=== PATIENT | female | born 1990 | race Two or more races ===

== ENCOUNTER 2019-02-24 12:39 | Emergency (ER) | payer MEDICAID ==
[~2019-02-24] VITALS: Ht 157.5 cm; Wt 81.6 kg
[2019-02-24 12:48] VITALS: BP 125/86
[2019-02-24 13:13] LABS: Basophils # (auto) 0 uL; Basophils % (auto) 0.3 % (0.0-2.0); Eosinophils # (auto) 0 uL; Eosinophils % (auto) 0.3 % (0.0-7.0); Hematocrit 38.3 % (36.0-46.0); Hemoglobin 12.8 g/dL (12.2-16.2); Lymphocytes # (auto) 2.1 uL; Lymphocytes % (auto) 18.9 % (10.0-50.0); Mean Corpuscular Hemoglobin 28.8 pg (28.0-32.0); Mean Corpuscular Hgb Conc. 33.5 g/dL (32.0-36.0); Monocytes # (auto) 0.4 uL; Monocytes % (auto) 3.5 % (0.0-12.0); Neutrophils # (auto) 8.6 uL; Platelet Count (auto) 278 10^3/uL (140-450); Red Blood Cells 4.46 10^6/uL (4.0-5.20); Red Cell Distribution Width 14.2 % (11.8-14.3); White Blood Cell 11.1 10^3/uL (4.4-10.8)
[2019-02-24 13:40] LABS: Albumin 3.8 g/dL (3.4-5.0); Anion Gap 8 (5-15); Blood Urea Nitrogen 12 mg/dL (7-18); Calcium 8.8 mg/dL (8.5-10.1); Carbon Dioxide 24 mmol/L (21-32); Chloride 105 mmol/L (98-107); Glucose 126 mg/dL (74-106); Potassium 3.7 mmol/L (3.5-5.1); Sodium 137 mmol/L (136-145)
[2019-02-24 13:45] LABS: Alanine Aminotransferase 42 U/L (13-56); Alkaline Phosphatase 95 U/L (45-117); Aspartate Aminotransferase 25 U/L (15-37); BUN/Creatinine Ratio 17.6; Bilirubin, Total 0.7 mg/dL (0.2-1.0); GFR African American 133 mL/min; GFR Non-African American 110 mL/min; Total Protein 8.5 g/dL (6.4-8.2)
[2019-02-24] MEDS ORDERED: KETOROLAC TROMETH 60MG/2ML VIAL IM ONE (13:45)
== END 2019-02-24 14:12 | disposition home or self-care (01) ==
LOC: ER 12:42
DX: R07.89 Other chest pain (principal); L73.2 Hidradenitis suppurativa
CPT/HCPCS: 36415; 71046; 80053; 84443; 84484; 85025; 93005; 96372; 99284; J1885

== ENCOUNTER 2024-05-04 21:30 | Observation (INO) | payer BC ==
[~2024-05-04] VITALS: Ht 157.5 cm; Wt 82.6 kg
[2024-05-04] MEDS ORDERED: LACTATED RINGER'S 1,000 ML IV SCH (22:15)
[2024-05-04] MEDS: MINERAL OIL TOPICAL 10ml TOP ONE (23:00)
[2024-05-04] MEDS ORDERED: IBUP-1456 PO (23:21)
[2024-05-04] MEDS ORDERED: CEPH250C PO (23:21)
[2024-05-04] MEDS ORDERED: IBUPROFEN 800 MG TAB PO ONE (23:30)
[2024-05-04] MEDS ORDERED: ACETAMINOPHEN 500 MG TAB PO ONE (23:30)
[2024-05-04] MEDS: ceFAZolin 2 GM/D5W50ml 50 ML IV ONE (23:30)
[2024-05-05] MEDS: OXYTOCIN 10UNIT/ML 1ML VIAL ONE (00:05)
[2024-05-05] MEDS: LACT. RINGERS/OXYTOCIN 20UNITS 500 ML IV ONE ×2 (00:06→00:07)
== END 2024-05-05 02:08 | disposition home or self-care (01) ==
LOC: INTOOBSV 21:30 → OBSVTOIN 21:30 → LDRP 21:30
PROVIDERS: ADMIT Obstetrics & Gynecology; ATTEND Obstetrics & Gynecology
DX: O03.9 Complete or unspecified spontaneous abortion without complication (principal); O60.02 Preterm labor without delivery, second trimester; Z3A.17 17 weeks gestation of pregnancy; Z79.899 Other long term (current) drug therapy; Z98.890 Other specified postprocedural states
CPT/HCPCS: 76856; 88300; 88307; 94760; 96365; 96366; 96367; G0378; J0690; J2590; 59409; 96360; 96372

== ENCOUNTER 2025-05-05 01:04 | Inpatient (IN) | payer BC ==
[~2025-05-05] VITALS: Ht 157.5 cm; Wt 88.4 kg
[2025-05-05] VITALS (7 sets, daily range): BP systolic 111–130; BP diastolic 68–91; PULSE 57–85; RESP 16–18; TEMP 97.7–98.1; O2SAT 16–100
[~2025-05-05 01:04] MED LIST: CEPH250C PO; IBUP-1456 PO
--- NOTE | 2025-05-05 01:38 | ED.PDOC ---
GI ASSESSMENT HPI Comments 34 year old female PMHx anxiety, gallstones presents to the ED with a chief complaint of abdominal pain onset last night around 21:00. Patient was told she had gallstones a few years ago, opted for no surgery, has been experiencing intermittent pain, resolves on its own. Last night around 21:00 she began experiencing RUQ pain, burning sensation, as well as nausea. She took Tylenol around 21:15 with no improvement of symptoms. Denies vomiting, diarrhea, hematemesis, fever, chills, dysuria, hematuria. No other symptoms or modifying factors present at this time. Chief Complaint: Abdominal Pain Time Seen by MD: 01:30 Primary Care Provider: UNKNOWN Reviewed Notes: Medications, Allergies Allergies: Coded Allergies: NO KNOWN ALLERGIES (Unverified , 05/30/14) Home Meds Active Scripts Cephalexin (KEFLEX CAPSULE) 250 Mg Cp, 1 CAP PO QID for 7 Days, #28 CAP Prov:[facility] 05/04/24 Ibuprofen (Ibuprofen) 800 Mg Tab, 800 MG PO Q8HP PRN for 20 Days, #60 TAB Prov:[facility] 05/04/24 Information Source: Patient, Spouse Mode of Arrival: Ambulatory Timing: Hours Duration: Since onset Prehospital treatment: Pain Meds Quality: Burning Vomitus: None Severity: Moderate Recent: None Recent Hx of: None Pain Location: RUQ Modifying Factors: Nothing Associated sign and symptoms: Nausea, Abdominal Pain Past Medical History PAST MEDICAL HISTORY: Anxiety, Gallstones Surgical History: FLOOR SCRUBBER History: No Pertinent FLOOR SCRUBBER History Family History Family History: Unknown Social History Smoker: Non-Smoker Alcohol: Denies ETOH Use Drugs: Denies Drug Use Lives In: Home Constitutional: denies: chills, diaphoresis, fatigue, fever, malaise, sweats, weakness, others EENTM: denies: blurred vision, double vision, ear bleeding, ear discharge, ear drainage, ear pain, ear ringing, eye pain, eye redness, hearing loss, mouth pain, mouth swelling, nasal discharge, nose bleeding, nose congestion, nose pain, photophobia, tearing, throat pain, throat swelling, voice changes, others Respiratory: denies: cough, hemoptysis, orthopnea, SOB at rest, shortness of breath, SOB with excertion, stridor, wheezing, others Cardiovascular: denies: chest pain, dizzy spells, diaphoresis, Dyspnea on exertion, edema, irregular heart beat, left arm pain, lightheadedness, palpitations, PND, syncope, others Gastrointestinal: reports: abdominal pain, nausea; denies: abdomen distended, blood streaked bowels, constipated, diarrhea, dysphagia, difficulty swallowing, hematemesis, melena, poor appetite, poor fluid intake, rectal bleeding, rectal pain, vomiting, others Genitourinary: denies: abnormal vagina bleeding, burning, dyspareunia, dysuria, flank pain, frequency, hematuria, incontinence, pain, , vagina discharge, urgency, others Neurological: denies: dizziness, fainting, headache, left sided numbness, left sided weakness, numbness, paresthesia, pre-existing deficit, right sided numbness, right sided weakness, seizure, speech problems, tingling, tremors, weakness, others Musculoskeletal: denies: back pain, gout, joint pain, joint swelling, muscle pain, muscle stiffness, neck pain, others Integumetry: denies: bruises, change in color, change in hair/nails, dryness, laceration, lesions, lumps, rash, wounds, others Allergic/Immunocompromised: denies: Difficulty Healing, Frequent Infections, Hives, Itching, others Hematologic/Lymphatic: denies: anemia, blood clots, easy bleeding, easy bruising, swollen glands, others Endocrine: denies: excessive hunger, excessive sweating, excessive thirst, excessive urination, flushing, intolerance to cold, intolerance to heat, unexplained weight gain, unexplained weight loss, others Psychiatric: denies: anxiety, bipolar disorder, depression, hopeless, panic disorder, schizophrenia, sleepless, suicidal, others All Other Systems: Reviewed and Negative Physical Exam General Appearance: Normal HEENT: Normal ENT Inspection, Pharynx Normal, TMs Normal Neck: Full Range of Motion, Non-Tender, Normal, Normal Inspection Respiratory: Chest Non-Tender, Lungs Clear, No Accessory Muscle Use, No Respiratory Distress, Normal Breath Sounds Cardiovascular: No Edema, No JVD, No Murmur, No Gallop, Normal Peripheral Pulses, Regular Rate/Rhythm Breast Exam: Deferred Gastrointestinal: No Organomegaly, Non Tender, No Pulsatile Mass, Normal Bowel Sounds, Soft Genitalia: Deferred Pelvic: Deferred Rectal: Deferred Extremities: No calf tenderness, Normal capillary refill, Normal inspection, Normal range of motion, Non-tender, No pedal edema Musculoskeletal : Apperance: Normal Neurologic: Alert, cable strander II-XII nml as Tested, No Motor Deficits, Normal Affect, Normal Mood, No Sensory Deficits Cerebellar Function: Normal Reflexes: Normal Skin: Dry, Normal Color, Warm Lymphatic: No Adenopathy Was a procedure done? Was a procedure done?: No GI differential Dx Differential Diagnosis: Appendicitis, Bowel Obstruction, Cholangitis, Cholecystitis, Diverticular disease, Gastritis/PUD, Gastroenteritis, GI hemorrhage, Inflammatory BD, Ischemic Bowel, Dehydration, Other X-Ray, Labs, Meds, VS Vital Signs Date Time Temp Pulse Resp B/P (MAP) Pulse Ox O2 Delivery O2 Flow Rate FiO2 05/05/25 02:14 98.2 69 20 129/79 (96) 97 98.2 05/05/25 01:10 97.7 79 18 132/94 97 97.7 Lab Test 05/05/25 01:40 Range/Units White Blood Count 10.2 4.4-10.8 10^3/uL Red Blood Count 4.20 4.0-5.20 10^6/uL Hemoglobin 11.2 L 12.2-16.2 g/dL Hematocrit 33.4 L 36.0-46.0 % Mean Corpuscular Volume 79.4 L 80.0-100.0 fL Mean Corpuscular Hemoglobin 26.6 L 28.0-32.0 pg Mean Corpuscular Hemoglobin Concent 33.4 32.0-36.0 g/dL Red Cell Distribution Width 16.7 H 11.8-14.3 % Platelet Count 370 140-450 10^3/uL Mean Platelet Volume 7.8 6.9-10.8 fL Neutrophils (%) (Auto) 57.1 37.0-80.0 % Lymphocytes (%) (Auto) 34.6 10.0-50.0 % Monocytes (%) (Auto) 6.5 0.0-12.0 % Eosinophils (%) (Auto) 1.4 0.0-7.0 % Basophils (%) (Auto) 0.4 0.0-2.0 % Neutrophils # (Auto) 5.8 1.6-8.6 10 ^3/uL Lymphocytes # (Auto) 3.5 0.4-5.4 10 ^3/uL Monocytes # (Auto) 0.7 0-1.3 10 ^3/uL Eosinophils # (Auto) 0.1 0-0.8 10 ^3/uL Basophils # (Auto) 0 0-0.2 10 ^3/uL Nucleated Red Blood Cells 0.1 % Sodium Level 140 136-145 mmol/L Potassium Level 3.7 3.5-5.1 mmol/L Chloride Level 104 98-107 mmol/L Carbon Dioxide Level 26 20-31 mmol/L Anion Gap 10 5-15 Blood Urea Nitrogen 11 9-23 mg/dL Creatinine 0.70 0.550-1.02 mg/dL Glomerular Filtration Rate Calc 116 >90 mL/min BUN/Creatinine Ratio 15.7 10.0-20.0 Serum Glucose 114 H 74-106 mg/dL Calcium Level 9.1 8.7-10.4 mg/dL Total Bilirubin 0.3 0.2-1.0 mg/dL Aspartate Amino Transferase (AST) 28 13-40 U/L Alanine Aminotransferase (ALT) 46 H 7-40 U/L Alkaline Phosphatase 99 46-116 U/L Total Protein 7.7 5.7-8.2 g/dL Albumin 4.3 3.2-4.8 g/dL Lipase 40 12-53 U/L Current Medications Medications (Trade) Dose Ordered Sig/Lori Route Start Time Stop Time Status Last Admin Ondansetron HCl (Zofran) 4 mg ONCE ONCE IV 05/05/25 01:45 05/05/25 01:46 DC 05/05/25 02:17 Sodium Chloride 500 ml @ 500 mls/hr Q1H ONCE IVB 05/05/25 01:45 05/05/25 02:44 DC 05/05/25 02:16 Ketorolac Tromethamine (Toradol Injection) 15 mg ONCE ONCE IV 05/05/25 01:45 05/05/25 01:46 DC 05/05/25 02:17 Time of 1ST Reevaluation: 02:00 Reevaluation 1ST: Unchanged Patient Education/Counseling: Diagnosis, Treatment, Prognosis Family Education/Counseling: Diagnosis, Treatment, Prognosis SEPSIS Sepsis Screen Date sepsis recognized/suspect: May 05, 2025 Time Sepsis recognized/suspect: 011 Recent Procedure: No On Antibiotic Therapy: No Respiratory Rate >20: No Heart Rate >90: No Temp<36 C (96.8 F) or >38.3 C: No SBP <90 or MAP <65 mmHG: No New Acute Mental Status Change: No Is the patient on CPAP, BIPAP,: No Physician Orders Urinalysis (05/05/25 01:31) Gallbladder (05/05/25 01:31) Test, Urine (05/05/25 01:31) Piperacillin-Tazob 3.375gm (Zosyn 3.375g (05/05/25 03:15) Vital Signs Date Time Temp Pulse Resp B/P (MAP) Pulse Ox O2 Delivery O2 Flow Rate FiO2 05/05/25 02:14 98.2 69 20 129/79 (96) 97 98.2 05/05/25 01:10 97.7 79 18 132/94 97 97.7 Laboratory Tests Test 05/05/25 01:40 White Blood Count 10.2 10^3/uL (4.4-10.8) Medications Medications Dose Ordered Sig/Lori Route Start Time Stop Time Status Last Admin Dose Admin Ketorolac Tromethamine 15 mg ONCE ONCE IV 05/05/25 01:45 05/05/25 01:46 DC 05/05/25 02:17 Ondansetron HCl 4 mg ONCE ONCE IV 05/05/25 01:45 05/05/25 01:46 DC 05/05/25 02:17 Sodium Chloride 500 ml @ 500 mls/hr Q1H ONCE IVB 05/05/25 01:45 05/05/25 02:44 DC 05/05/25 02:16 Departure 1 Departure Time of Disposition: 03:07 Impression: Primary Impression: Acute cholecystitis Disposition: 09 ADMITTED INPATIENT Admit to: Med Surg Condition: Guarded Comments 34-year-old female with history of gallstones now with right upper quadrant pain that is severe and she has significant tenderness. Ultrasound shows gallstone that is non mobile and there is some gallbladder wall thickening. White blood cell count normal at 10. Borderline anemia with H&H of 11 and 33. ALT is borderline elevated at 46. Lipase is normal at 40. Patient was given IV fluids and IV Zosyn antibiotics. Patient will need to be admitted for IV antibiotics and specialty consultation for possible cholecystectomy Critical Care Note Critical Care Time?: Yes (35 min-critical care time only) Critical care comment: Total critical care time: Approximately 36 minutes Due to a high probability of clinically significant, life threatening deteri oration, the patient required my highest level of preparedness to intervene emergently and I personally spent this critical care time directly and personally managing the patient. This critical care time included obtaining a history; examining the patient; pulse oximetry; ordering and review of studies; arranging urgent treatment with development of a management plan; evaluation of patient's response to treatment; frequent reassessment; and, discussions with other providers. This critical care time was performed to assess and manage the high probability of imminent, life-threatening deterioration that could result in multi-organ al lure. It was exclusive of separately billable procedures and treating other patients. Stability Stability form required: No Heart Score Heart Score: Heart Score Response (Comments) Value History N/A 0 EKG N/A 0 Age N/A 0 Risk Factors N/A 0 Troponin N/A 0 Total 0 I personally scribed for CARRIE LANGFORD MD ([email or web address]) on 05/05/25 at 01:38. Electronically submitted by Vivian Welsh ([email or web address]). CARRIE LANGFORD MD May 05, 2025 01:38
[2025-05-05 01:59] LABS: Hematocrit 33.4 % (36.0-46.0); Hemoglobin 11.2 g/dL (12.2-16.2); Mean Corpuscular Hemoglobin 26.6 pg (28.0-32.0); Mean Corpuscular Volume 79.4 fL (80.0-100.0); Nucleated Red Blood Cells % 0.1 %
--- NOTE | 2025-05-05 02:07 | DVH ---
INDICATION: RUQ pain, known gallstones TECHNIQUE: Multiple real-time sonographic images were obtained of the right upper quadrant. COMPARISON: None FINDINGS: The liver demonstrates diffusely increased echotexture without focal mass lesions. The live r measures 17.6 cm. Normal hepatopetal portal venous flow identified. No evidence of pleural effusio n or abdominal ascites. There is no intrahepatic or extrahepatic ductal dilatation. The common duct measures 0.3 cm. Non mobile 2.6 cm gallstone within the gallbladder. Mild wall thickening measures up to 0.4 cm. Nega tive sonographic lockwood's sign. The right kidney measures 9.1 cm. The right kidney is normal in contour, size, and shape. The echogen icity is normal. There is no hydronephrosis. The pancreas is not well visualized due to overlying bowel gas. IMPRESSION: 1. Cholelithiasis with mild gallbladder wall thickening. Negative sonographic Lockwood sign. 2. Hepatic steatosis.
[2025-05-05 02:14] LABS: Alanine Aminotransferase 46 U/L (7-40); Albumin 4.3 g/dL (3.2-4.8); Alkaline Phosphatase 99 U/L (46-116); Anion Gap 10 (5-15); BUN/Creatinine Ratio 15.7 (10.0-20.0); Blood Urea Nitrogen 11 mg/dL (9-23); Calcium 9.1 mg/dL (8.7-10.4); Carbon Dioxide 26 mmol/L (20-31); Chloride 104 mmol/L (98-107); Glucose 114 mg/dL (74-106); Lipase 40 U/L (12-53); Potassium 3.7 mmol/L (3.5-5.1); Sodium 140 mmol/L (136-145); Total Protein 7.7 g/dL (5.7-8.2)
[2025-05-05] MEDS: SODIUM CHLORIDE 0.9% 500 ML IVB ONE (02:16)
[2025-05-05] MEDS: ONDANSETRON HCL 4 MG/2 ML VIAL IV ONE (02:17)
[2025-05-05] MEDS: KETOROLAC TROMETH 30 MG/ML 1ML VIAL IV ONE (02:17)
[2025-05-05 02:18] LABS: Bilirubin, Total 0.3 mg/dL (0.2-1.0)
[2025-05-05] MEDS ORDERED: MORPHINE SULFATE INJ 2 MG/ml SYRG IV PRN (03:45)
[2025-05-05] MEDS ORDERED: ONDANSETRON HCL 4 MG/2 ML VIAL IV PRN (03:45)
[2025-05-05] MEDS: HYDROmorphone HCL 2 MG/ML VL/or syr IV ONE (04:13)
[2025-05-05 04:14] LABS: INR 0.97 (0.9-1.15); Partial Thromboplastin Time 31.0 SEC (24.5-34.5); Prothrombin Time 10.3 sec (9.3-11.8)
[2025-05-05] MEDS: PIPERACILLIN-TAZOB 3.375GM 100 ML IV ONE (04:18)
[2025-05-05 04:25] LABS: Urine Protein, UAD Negative (Negative)
--- NOTE | 2025-05-05 04:49 | DVHHP2 ---
History of Present Illness Reason for Visit: Abdominal pain History of Present Illness 34-year-old female presents for evaluation of abdominal pain. Patient reports a one day history of right upper quadrant constant abdominal pain. She states the pain started last night after eating dinner. She does report a history of gallb ladder stones in the past. Reports nausea. No fever or chills. Past Medical History Gallstones Past Surgical History Family History Noncontributory Smoke: No ALCOHOL: none Drugs: None Lives: with Family Review of Systems Review of Systems Review of systems are currently negative otherwise addressed in HPI. Allergies: Coded Allergies: NO KNOWN ALLERGIES (Unverified , 05/30/14) Medications Current Medications Medications Dose Ordered Sig/Lori Route Start Time Stop Time Status Last Admin Dose Admin Ceftriaxone Sodium 50 ml @ 100 mls/hr DAILY@09 IV 05/05/25 09:00 Pantoprazole Sodium 40 mg DAILY IV 05/05/25 10:00 Ondansetron HCl 4 mg Q4HP PRN IV 05/05/25 03:45 Morphine Sulfate 2 mg Q4HPRN PRN IV 05/05/25 03:45 Exam Vital Signs Vital Signs Date Time Temp Pulse Resp B/P (MAP) Pulse Ox O2 Delivery O2 Flow Rate FiO2 05/05/25 04:36 Room Air* 0 21 05/05/25 04:16 98.2 61 20 124/71 (88) 99 98.2 Exam Gen: 34-year-old female in mild distress Skin: Warm, dry, normal color and texture, no rash. HEENT: Normocephalic atraumatic, mucous membranes moist and pink. Neck: Cervical and supraclavicular nodes normal without enlargement, trachea is midline, thyroid gland is normal without masses. Pulmonary: Clear to auscultation and percussion bilaterally. Cardiac: Regular rate and rhythm. No murmur Abdomen: Soft, right upper quadrant tenderness, nondistended, bowel sounds present all 4 quadrants, no guarding, no rigidity, no organomegaly. Extremities: No cyanosis, clubbing, no edema Neuro: Cranial nerves II through XII grossly intact, normal affect and speech, no focal motor deficits. Labs/Xrays ORDERING PHYSICIAN: CARRIE LANGFORD MD PROCEDURE(s): GBUS - GALLBLADDER REASON: RUQ pain, known gallstones ORDER NUMBER(s): [id number], ACCESSION NUMBER(s): [id number] INDICATION: RUQ pain, known gallstones TECHNIQUE: Multiple real-time sonographic images were obtained of the right upper quadrant. COMPARISON: None FINDINGS: The liver demonstrates diffusely increased echotexture without focal mass lesions. The liver measures 17.6 cm. Normal hepatopetal portal venous flow identified. No evidence of pleural effusion or abdominal ascites. There is no intrahepatic or extrahepatic ductal dilatation. The common duct measures 0.3 cm. Non mobile 2.6 cm gallstone within the gallbladder. Mild wall thickening measures up to 0.4 cm. Negative sonographic lockwood's sign. The right kidney measures 9.1 cm. The right kidney is normal in contour, size, and shape. The echogenicity is normal. There is no hydronephrosis. The pancreas is not well visualized due to overlying bowel gas. IMPRESSION: 1. Cholelithiasis with mild gallbladder wall thickening. Negative sonographic Lockwood sign. 2. Hepatic steatosis. Labs Test 05/05/25 03:51 05/05/25 01:40 Range/Units Urine Color Light-yellow Yellow Urine Clarity Clear Clear Urine pH 6.5 5.0-9.0 Urine Specific Superior 1.027 1.001-1.035 Urine Protein Negative Negative Urine Ketones Negative Negative Urine Blood Negative Negative /uL Urine Nitrite Negative Negative Urine Bilirubin Negative Negative Urine Urobilinogen Normal Negative mg/dL Urine Leukocyte Esterase Negative Negative /uL Urine RBC 3 0 - 4 /hpf Urine Microscopic WBC < 1 0-5 /HPF Urine Squamous Epithelial Cells Few <5 /hpf Urine Bacteria None seen None Seen /hpf Urine Mucus Few None Seen Urine Glucose Normal Normal mg/dL Urine Test Negative Negative White Blood Count 10.2 4.4-10.8 10^3/uL Red Blood Count 4.20 4.0-5.20 10^6/uL Hemoglobin 11.2 L 12.2-16.2 g/dL Hematocrit 33.4 L 36.0-46.0 % Mean Corpuscular Volume 79.4 L 80.0-100.0 fL Mean Corpuscular Hemoglobin 26.6 L 28.0-32.0 pg Mean Corpuscular Hemoglobin Concent 33.4 32.0-36.0 g/dL Red Cell Distribution Width 16.7 H 11.8-14.3 % Platelet Count 370 140-450 10^3/uL Mean Platelet Volume 7.8 6.9-10.8 fL Neutrophils (%) (Auto) 57.1 37.0-80.0 % Lymphocytes (%) (Auto) 34.6 10.0-50.0 % Monocytes (%) (Auto) 6.5 0.0-12.0 % Eosinophils (%) (Auto) 1.4 0.0-7.0 % Basophils (%) (Auto) 0.4 0.0-2.0 % Neutrophils # (Auto) 5.8 1.6-8.6 10 ^3/uL Lymphocytes # (Auto) 3.5 0.4-5.4 10 ^3/uL Monocytes # (Auto) 0.7 0-1.3 10 ^3/uL Eosinophils # (Auto) 0.1 0-0.8 10 ^3/uL Basophils # (Auto) 0 0-0.2 10 ^3/uL Nucleated Red Blood Cells 0.1 % Prothrombin Time 10.3 9.3-11.8 sec Prothrombin Time INR 0.97 0.9-1.15 Activated Partial Thromboplast Time 31.0 24.5-34.5 SEC Sodium Level 140 136-145 mmol/L Potassium Level 3.7 3.5-5.1 mmol/L Chloride Level 104 98-107 mmol/L Carbon Dioxide Level 26 20-31 mmol/L Anion Gap 10 5-15 Blood Urea Nitrogen 11 9-23 mg/dL Creatinine 0.70 0.550-1.02 mg/dL Glomerular Filtration Rate Calc 116 >90 mL/min BUN/Creatinine Ratio 15.7 10.0-20.0 Serum Glucose 114 H 74-106 mg/dL Calcium Level 9.1 8.7-10.4 mg/dL Total Bilirubin 0.3 0.2-1.0 mg/dL Aspartate Amino Transferase (AST) 28 13-40 U/L Alanine Aminotransferase (ALT) 46 H 7-40 U/L Alkaline Phosphatase 99 46-116 U/L Total Protein 7.7 5.7-8.2 g/dL Albumin 4.3 3.2-4.8 g/dL Lipase 40 12-53 U/L SEPSIS Sepsis Screen Date sepsis recognized/suspect: May 05, 2025 Time Sepsis recognized/suspect: 0112 Recent Procedure: No On Antibiotic Therapy: No Respiratory Rate >20: No Heart Rate >90: No Temp<36 C (96.8 F) or >38.3 C: No SBP <90 or MAP <65 mmHG: No New Acute Mental Status Change: No Is the patient on CPAP, BIPAP,: No Physician Orders Gallbladder (05/05/25 01:31) Nm Hida Scan (05/05/25 03:37) Pantoprazole (Protonix) (05/05/25 10:00) Admit (05/05/25 03:37) Ondansetron Hcl (Zofran) (05/05/25 03:45) Complete Blood Count (05/06/25 04:00) Comprehensive Metabolic Panel (05/06/25 04:00) Npo (Nothing By Mouth) Diet (05/05/25 Breakfast) Condition: Stable (05/05/25 03:37) Bedrest With Bathroom Privileg (05/05/25 03:37) Morphine Sulfate Injection (05/05/25 03:45) Type And Screen (05/05/25 03:37) Ceftriaxone 1gm/50ml (Rocephin) (05/05/25 09:00) Vital Signs Date Time Temp Pulse Resp B/P (MAP) Pulse Ox O2 Delivery O2 Flow Rate FiO2 05/05/25 04:36 Room Air* 0 21 05/05/25 04:16 98.2 61 20 124/71 (88) 99 98.2 05/05/25 02:14 98.2 69 20 129/79 (96) 97 98.2 05/05/25 01:10 97.7 79 18 132/94 97 97.7 Laboratory Tests Test 05/05/25 01:40 White Blood Count 10.2 10^3/uL (4.4-10.8) Medications Medications Dose Ordered Sig/Lori Route Start Time Stop Time Status Last Admin Dose Admin Ketorolac Tromethamine 15 mg ONCE ONCE IV 05/05/25 01:45 05/05/25 01:46 DC 05/05/25 02:17 15 MG Ondansetron HCl 4 mg ONCE ONCE IV 05/05/25 01:45 05/05/25 01:46 DC 05/05/25 02:17 4 MG Piperacillin Sod/ Tazobactam Sod 100 ml @ 100 mls/hr ONCE ONCE IV 05/05/25 03:15 05/05/25 04:14 DC 05/05/25 04:18 100 MLS/HR Sodium Chloride 500 ml @ 500 mls/hr Q1H ONCE IVB 05/05/25 01:45 05/05/25 02:44 DC 05/05/25 02:16 500 MLS/HR Assessment/Plan Assessment/Plan Assessment Acute abdominal pain Rule out acute cholecystitis Plan Admit the patient to [facility] to the hospitalist Surgical consultation HIDA scan pain Rocephin NPO Pain management Plan discussed with: Patient My Orders Orders - DUYEN ELENA Procedure Category Date Status Time Nm Hida Scan NM 05/05/25 Logged 03:37 Pantoprazole PHA 05/05/25 In Process (Protonix) 10:00 Admit ADMIT 05/05/25 Transmitted 03:37 Ondansetron Hcl PHA 05/05/25 In Process (Zofran) 03:45 Complete Blood Count LAB 05/06/25 Verified 04:00 Comprehensive LAB 05/06/25 Verified Metabolic Panel 04:00 Npo (Nothing By DIET 05/05/25 Transmitted Mouth) Diet Breakfast Condition: Stable BERTHA 05/05/25 In Process 03:37 Bedrest With Bathroom BERTHA 05/05/25 In Process Privileg 03:37 Morphine Sulfate PHA 05/05/25 In Process Injection 03:45 Type And Screen BBK 05/05/25 In Process 03:37 Ceftriaxone 1gm/50ml PHA 05/05/25 In Process (Rocephin) 09:00 Date of Service: May 05, 2025 Billing Provider: DUYEN ELENA Common Visit Codes: [id number] INP/OBS CARE (MOD) DUYEN ELENA May 05, 2025 04:49
[2025-05-05] MEDS: PANTOPRAZOLE 40 MG/10 ML VIAL INJ IV SCH (09:32)
--- NOTE | 2025-05-05 09:45 | DVH ---
Procedure: NM NM HIDA SCAN Exam Date: 05/05/2025 07:51 AM Clinical History: r/o cholecystitis Comparison Study: US GALLBLADDER on DOS: 05/05/25 Nuclear Medicine Hepatobiliary Scan. Technique: Following the intravenous administration of 4.5 mCi of technetium 99m labeled Choletec multiple plana r abdominal planar images were obtained. Findings: The liver appears grossly normal in size. There is no abnormal persistence of the cardiac or blood po ol activity. There is prompt visualization of the gallbladder and excretion of activity into the smal l bowel. Impression: Unremarkable hepatobiliary study without evidence of acute cholecystitis.
--- NOTE | 2025-05-05 16:54 | DVHPN2 ---
Subjective Patient continues to have right upper quadrant pain with eating. Reviewed: Care Plan, H&P, Labs, Medications Changes from previous H/P or p: No Changes General: Per HPI Objective Vitals Vital Signs Date Time Temp Pulse Resp B/P (MAP) Pulse Ox O2 Delivery O2 Flow Rate FiO2 05/05/25 16:46 98.0 63 18 117/79 (92) 100 98.0 05/05/25 07:39 Room Air* 0 21 Intake/Output Intake and Output 05/05/25 07:00 Intake Total 500 ml Balance 500 ml Intake IV Total 500 ml General Appearance: Alert, Oriented X3, Cooperative, No acute distress HEENT: Atraumatic, PERRLA Lungs: Clear to auscultation, Normal air movement Cardiovascular: Normal S1, Normal S2 Abdomen: Normal bowel sounds, Soft, No tenderness Rectal: Normal inspection Back: Flank Tenderness, Midline Tenderness Musculoskeletal: Normal sensory function, Normal motor function Neuro: Normal gait, Normal speech Skin: Dry, Intact Psych/Mental Status: Mental status NL, Mood NL Medications Current Medications Medications Dose Ordered Sig/Lori Route Start Time Stop Time Status Last Admin Dose Admin Ceftriaxone Sodium 50 ml @ 100 mls/hr DAILY@09 IV 05/05/25 09:00 05/05/25 09:30 100 MLS/HR Pantoprazole Sodium 40 mg DAILY IV 05/05/25 10:00 05/05/25 09:32 40 MG Ondansetron HCl 4 mg Q4HP PRN IV 05/05/25 03:45 Morphine Sulfate 2 mg Q4HPRN PRN IV 05/05/25 03:45 Laboratory Results Laboratory Tests 05/05/25 01:40 Chemistry Test 05/05/25 01:40 Albumin 4.3 g/dL (3.2-4.8) Calcium Level 9.1 mg/dL (8.7-10.4) Total Protein 7.7 g/dL (5.7-8.2) Coagulation Test 05/05/25 01:40 Prothrombin Time 10.3 sec (9.3-11.8) Prothrombin Time INR 0.97 (0.9-1.15) Activated Partial Thromboplast Time 31.0 SEC (24.5-34.5) Lipid panel Test 05/05/25 01:40 Lipase 40 U/L (12-53) LFT Test 05/05/25 01:40 Alanine Aminotransferase (ALT) 46 U/L (7-40) H Alkaline Phosphatase 99 U/L (46-116) Aspartate Amino Transferase (AST) 28 U/L (13-40) Total Bilirubin 0.3 mg/dL (0.2-1.0) Urinalysis Test 05/05/25 03:51 Urine Color Light-yellow (Yellow) Urine Clarity Clear (Clear) Urine pH 6.5 (5.0-9.0) Urine Specific [place] 1.027 (1.001-1.035) Urine Protein Negative (Negative) Urine Ketones Negative (Negative) Urine Blood Negative /uL (Negative) Urine Nitrite Negative (Negative) Urine Bilirubin Negative (Negative) Urine Urobilinogen Normal mg/dL (Negative) Urine Leukocyte Esterase Negative /uL (Negative) Urine RBC 3 /hpf (0 - 4) Urine Microscopic WBC < 1 /HPF (0-5) Urine Squamous Epithelial Cells Few /hpf (<5) Urine Bacteria None seen /hpf (None Seen) Urine Mucus Few (None Seen) Urine Glucose Normal mg/dL (Normal) Urine Test Negative (Negative) Labs and/or images reviewed: Labs reviewed by me, Image(s) reviewed by me Assessment/Plan Assessment/Plan Impression: -cholelithiasis with biliary colic -obesity Plan: -patient reports that she has been diagnosed with cholelithiasis five years ago. Patient continues to have persistent and worsening pain over the past month, noted pain in the right upper quadrant, epigastric area as well as right shoulder with eating. Pain worsened to a 10/10 which prompted her to come to the emergency room. Patient was told in the past that she needed her gallbladder removed, but has not followed up. -continue antibiotic therapy -surgical consultation -start clear liquid diet, NPO after midnight -PPI Total time spent with patient discussing and formulating plan of care: 35 minutes. This medical document was created using an electronic medical record system with [employer] dictation system. Although this document has been carefully reviewed, there may still be some phonetic and typographical errors. These areas are purely typographical due to imperfections of the software programs, and do not reflect any compromise in the patient's medical care. Plan discussed with: Patient, Other (RN) My Orders Orders - [facility] Procedure Category Date Status Time * Surgical Consult CONS 05/05/25 Transmitted Date of Service: May 05, 2025 Billing Provider: MART SPICER NP Common Visit Codes: [id number] INP/OBS CARE(HIGH) MART SPICER NP May 05, 2025 16:54
--- NOTE | 2025-05-05 18:00 | DVHINCON2 ---
Consultation - Surgical Date Seen: May 05, 2025 Referring Physician Reason for Consultation Symptomatic cholelithiasis History of Present Illness History of Present Illness Mrs. Schuler is a 34-year-old female who presented to the ED due to right upper quadrant pain associated with nausea and vomiting. She has had this pain episodes for the last 5 years and they come intermittently. States that the pain episodes have become more frequent, they come every 1 or 2 weeks and lasts for several hours before subsiding. In the past she was referred to a surgeon but never completed the visit. Denies fevers, chills, acholic stools, changes in urinary or stooling habits. Patient does not have any pain at this moment and stated that the pain went away several hours ago Past Medical/Surgical History Past Medical/Surgical History PMH ovarian cyst, hidradenitis suppurativa PSH section x2, laparoscopic ovarian cyst removal Family and Social History Family and Social History Family history noncontributory ETOH/T Ob/drugs denies Allergies and medications Allergies: Coded Allergies: NO KNOWN ALLERGIES (Unverified , 05/30/14) Home Meds Active Scripts Cephalexin (KEFLEX CAPSULE) 250 Mg Cp, 1 CAP PO QID for 7 Days, #28 CAP Prov:RAYMUNDO [facility] 05/04/24 Ibuprofen (Ibuprofen) 800 Mg Tab, 800 MG PO Q8HP PRN for 20 Days, #60 TAB Prov:RAYMUNDO [facility] 05/04/24 Review of systems Review of Systems: Deferred Examination Vital signs Vital Signs Date Time Temp Pulse Resp B/P (MAP) Pulse Ox O2 Delivery O2 Flow Rate FiO2 05/05/25 16:46 98.0 63 18 117/79 (92) 100 98.0 05/05/25 07:39 Room Air* 0 21 Medications Current Medications Medications (Trade) Dose Ordered Sig/Lori Route PRN Reason Start Time Stop Time Status Last Admin Ceftriaxone Sodium 50 ml @ 100 mls/hr DAILY@09 IV 05/05/25 09:00 05/05/25 09:30 Pantoprazole Sodium (Protonix) 40 mg DAILY IV 05/05/25 10:00 05/05/25 09:32 Ondansetron HCl (Zofran) 4 mg Q4HP PRN IV NAUSEA / VOMITING 05/05/25 03:45 Morphine Sulfate 2 mg Q4HPRN PRN IV SEVERE PAIN (7-10 PAIN SCALE) 05/05/25 03:45 Laboratory Labs Test 05/05/25 03:51 05/05/25 01:40 Range/Units Urine Color Light-yellow Yellow Urine Clarity Clear Clear Urine pH 6.5 5.0-9.0 Urine Specific [place] 1.027 1.001-1.035 Urine Protein Negative Negative Urine Ketones Negative Negative Urine Blood Negative Negative /uL Urine Nitrite Negative Negative Urine Bilirubin Negative Negative Urine Urobilinogen Normal Negative mg/dL Urine Leukocyte Esterase Negative Negative /uL Urine RBC 3 0 - 4 /hpf Urine Microscopic WBC < 1 0-5 /HPF Urine Squamous Epithelial Cells Few <5 /hpf Urine Bacteria None seen None Seen /hpf Urine Mucus Few None Seen Urine Glucose Normal Normal mg/dL Urine Test Negative Negative White Blood Count 10.2 4.4-10.8 10^3/uL Red Blood Count 4.20 4.0-5.20 10^6/uL Hemoglobin 11.2 L 12.2-16.2 g/dL Hematocrit 33.4 L 36.0-46.0 % Mean Corpuscular Volume 79.4 L 80.0-100.0 fL Mean Corpuscular Hemoglobin 26.6 L 28.0-32.0 pg Mean Corpuscular Hemoglobin Concent 33.4 32.0-36.0 g/dL Red Cell Distribution Width 16.7 H 11.8-14.3 % Platelet Count 370 140-450 10^3/uL Mean Platelet Volume 7.8 6.9-10.8 fL Neutrophils (%) (Auto) 57.1 37.0-80.0 % Lymphocytes (%) (Auto) 34.6 10.0-50.0 % Monocytes (%) (Auto) 6.5 0.0-12.0 % Eosinophils (%) (Auto) 1.4 0.0-7.0 % Basophils (%) (Auto) 0.4 0.0-2.0 % Neutrophils # (Auto) 5.8 1.6-8.6 10 ^3/uL Lymphocytes # (Auto) 3.5 0.4-5.4 10 ^3/uL Monocytes # (Auto) 0.7 0-1.3 10 ^3/uL Eosinophils # (Auto) 0.1 0-0.8 10 ^3/uL Basophils # (Auto) 0 0-0.2 10 ^3/uL Nucleated Red Blood Cells 0.1 % Prothrombin Time 10.3 9.3-11.8 sec Prothrombin Time INR 0.97 0.9-1.15 Activated Partial Thromboplast Time 31.0 24.5-34.5 SEC Sodium Level 140 136-145 mmol/L Potassium Level 3.7 3.5-5.1 mmol/L Chloride Level 104 98-107 mmol/L Carbon Dioxide Level 26 20-31 mmol/L Anion Gap 10 5-15 Blood Urea Nitrogen 11 9-23 mg/dL Creatinine 0.70 0.550-1.02 mg/dL Glomerular Filtration Rate Calc 116 >90 mL/min BUN/Creatinine Ratio 15.7 10.0-20.0 Serum Glucose 114 H 74-106 mg/dL Calcium Level 9.1 8.7-10.4 mg/dL Total Bilirubin 0.3 0.2-1.0 mg/dL Aspartate Amino Transferase (AST) 28 13-40 U/L Alanine Aminotransferase (ALT) 46 H 7-40 U/L Alkaline Phosphatase 99 46-116 U/L Total Protein 7.7 5.7-8.2 g/dL Albumin 4.3 3.2-4.8 g/dL Lipase 40 12-53 U/L Examination: GENERAL:Normal, HEENT:Normal (No icterus), ABDOMEN:Normal (Nondistended, soft, depressible, nontender) Problem List/Assessment/Plan Problems: (1) Symptomatic cholelithiasis Assessment and Plan Mrs. Schuler is a 34-year-old female who presented with right upper quadrant pain. She has been getting this pain intermittently for the past 5 years. Ultrasound shows gallstones within the goal bladder lumen, but no gallbladder wall thickening or pericholecystic fluid. Patient also got a HIDA scan which w as negative. Patient does not have acute cholecystitis and does not have any pain at this moment. I will not be offering emergent surgery for gallbladder, she can follow-up in clinic for elective gallbladder surgery. I discussed the findings with the patient and she is okay with the plan for elective surgery. 1. Okay to discharge, surgery not offered at this point 2. Low-fat diet 3. Follow-up with Dr. Smith at surgery Clinic for elective scheduling of gallbladder removal 4. I will sign off, please call with any questions or concerns Plan discussed with Plan discussed with: Patient Visit Coding Surgery Date of Service if different f: May 05, 2025 Billing Provider: MICA DUONG MD Surgery Visit Codes: [id number] - INP CONSULT <110 MIN MICA DUNOG MD May 05, 2025 18:00
[2025-05-06 00:52] VITALS: BP 118/78; PULSE 61; RESP 14; TEMP 97.7; O2SAT 98
[2025-05-06 04:44] VITALS: BP 102/63; PULSE 68; RESP 19; TEMP 97.4; O2SAT 100
[2025-05-06 05:56] LABS: Mean Corpuscular Hemoglobin 26.2 pg (28.0-32.0)
[2025-05-06 05:59] LABS: Albumin 3.9 g/dL (3.2-4.8); Alkaline Phosphatase 71 U/L (46-116); Anion Gap 10 (5-15); BUN/Creatinine Ratio 11.1 (10.0-20.0); Calcium 8.7 mg/dL (8.7-10.4); Carbon Dioxide 24 mmol/L (20-31); Chloride 105 mmol/L (98-107); Glucose 86 mg/dL (74-106); Hematocrit 33.5 % (36.0-46.0); Hemoglobin 11.0 g/dL (12.2-16.2); Mean Corpuscular Volume 79.5 fL (80.0-100.0); Nucleated Red Blood Cells % 0.2 %; Potassium 3.8 mmol/L (3.5-5.1); Sodium 139 mmol/L (136-145); Total Protein 7.2 g/dL (5.7-8.2)
[2025-05-06 06:00] LABS: Bilirubin, Total 0.6 mg/dL (0.2-1.0)
[2025-05-06 06:09] LABS: Alanine Aminotransferase 52 U/L (7-40); Blood Urea Nitrogen 7 mg/dL (9-23)
[2025-05-06 08:00] VITALS: PULSE 68; RESP 18; O2SAT 95
[2025-05-06 08:20] VITALS: BP 115/74; PULSE 59; RESP 18; TEMP 98.2; O2SAT 98
[2025-05-06 12:51] VITALS: BP 112/73; PULSE 62; RESP 18; TEMP 98; O2SAT 99
--- NOTE | 2025-05-06 15:04 | DVHDS2 ---
Discharge Summary Date of Admission May 05, 2025 at 03:37 Date of Discharge: May 06, 2025 Admitting Diagnosis Abdominal pain secondary to cholelithiasis Labs/Diagnostic Data: Laboratory Results Test 05/06/25 04:51 05/05/25 03:51 05/05/25 01:40 White Blood Count 6.8 10^3/uL (4.4-10.8) Red Blood Count 4.21 10^6/uL (4.0-5.20) Hemoglobin 11.0 g/dL (12.2-16.2) Hematocrit 33.5 % (36.0-46.0) Mean Corpuscular Volume 79.5 fL (80.0-100.0) Mean Corpuscular Hemoglobin 26.2 pg (28.0-32.0) Mean Corpuscular Hemoglobin Concent 33.0 g/dL (32.0-36.0) Red Cell Distribution Width 16.2 % (11.8-14.3) Platelet Count 346 10^3/uL (140-450) Mean Platelet Volume 8.2 fL (6.9-10.8) Neutrophils (%) (Auto) 52.6 % (37.0-80.0) Lymphocytes (%) (Auto) 39.0 % (10.0-50.0) Monocytes (%) (Auto) 6.1 % (0.0-12.0) Eosinophils (%) (Auto) 1.8 % (0.0-7.0) Basophils (%) (Auto) 0.5 % (0.0-2.0) Neutrophils # (Auto) 3.6 10 ^3/uL (1.6-8.6) Lymphocytes # (Auto) 2.6 10 ^3/uL (0.4-5.4) Monocytes # (Auto) 0.4 10 ^3/uL (0-1.3) Eosinophils # (Auto) 0.1 10 ^3/uL (0-0.8) Basophils # (Auto) 0 10 ^3/uL (0-0.2) Nucleated Red Blood Cells 0.2 % Sodium Level 139 mmol/L (136-145) Potassium Level 3.8 mmol/L (3.5-5.1) Chloride Level 105 mmol/L (98-107) Carbon Dioxide Level 24 mmol/L (20-31) Anion Gap 10 (5-15) Blood Urea Nitrogen 7 mg/dL (9-23) Creatinine 0.63 mg/dL (0.550-1.02) Glomerular Filtration Rate Calc 119 mL/min (>90) BUN/Creatinine Ratio 11.1 (10.0-20.0) Serum Glucose 86 mg/dL (74-106) Calcium Level 8.7 mg/dL (8.7-10.4) Total Bilirubin 0.6 mg/dL (0.2-1.0) Aspartate Amino Transferase (AST) 41 U/L (13-40) Alanine Aminotransferase (ALT) 52 U/L (7-40) Alkaline Phosphatase 71 U/L (46-116) Total Protein 7.2 g/dL (5.7-8.2) Albumin 3.9 g/dL (3.2-4.8) Urine Color Light-yellow (Yellow) Urine Clarity Clear (Clear) Urine pH 6.5 (5.0-9.0) Urine Specific [place] 1.027 (1.001-1.035) Urine Protein Negative (Negative) Urine Ketones Negative (Negative) Urine Blood Negative /uL (Negative) Urine Nitrite Negative (Negative) Urine Bilirubin Negative (Negative) Urine Urobilinogen Normal mg/dL (Negative) Urine Leukocyte Esterase Negative /uL (Negative) Urine RBC 3 /hpf (0 - 4) Urine Microscopic WBC < 1 /HPF (0-5) Urine Squamous Epithelial Cells Few /hpf (<5) Urine Bacteria None seen /hpf (None Seen) Urine Mucus Few (None Seen) Urine Glucose Normal mg/dL (Normal) Urine Test Negative (Negative) Prothrombin Time 10.3 sec (9.3-11.8) Prothrombin Time INR 0.97 (0.9-1.15) Activated Partial Thromboplast Time 31.0 SEC (24.5-34.5) Lipase 40 U/L (12-53) Other Laboratory Tests 05/06/25 04:51 Brief Hx & Hospital Course: History of Present Illness 34-year-old female presents for evaluation of abdominal pain. Patient reports a one day history of right upper quadrant constant abdominal pain. She states the pain started last night after eating dinner. She does report a history of gallbladder stones in the past. Reports nausea. No fever or chills. Course of hospitalization: Patient had gallbladder ultrasound as well as HIDA scan which was negative for acute cholecystitis. Given patient has persistent biliary colic surgical consultation was placed. At this time no surgical intervention we will be provided. Patient was instructed to follow up as an outpatient with her PCP in obtain referral to General surgery for elective cholecystectomy. She was instructed to abstain from eating fatty or fried foods. Physical exam General: Alert and Oriented x3. No acute distress. Well-nourished. Obese Eyes: EOMI. Anicteric. HENT: Moist mucous membranes. Lungs: Clear to auscultation bilaterally. No accessory muscle use. Cardiovascular: Regular rate and rhythm. No murmur. No JVD. Abdomen: Soft, non-tender and non-distended. No palpable masses. Extremities: No edema. Non-tender. Skin: No rashes or lesions. Warm. Neurologic: No focal neurological deficits. CN II-XII grossly intact, but not individually tested. Psychiatric: Cooperative. Appropriate mood and affect. Total time spent with patient discussing and formulating plan of care: 35 minutes. This medical document was created using an electronic medical record system with [employer] dictation system. Although this document has been carefully reviewed, there may still be some phonetic and typographical errors. These areas are purely typographical due to imperfections of the software programs, and do not reflect any compromise in the patient's medical care. Consults/Reason for consult General surgery: Cholelithiasis with biliary colic Condition at Discharge: Fair Final Diagnosis/Problems List Cholelithiasis with biliary colic Obese Discharge Disposition: Home Discharge Instruct/Medications Diet: Cardiac 2g Na,low cholest Activity: No Restrictions, As Tolerated Follow Up/Referral: Follow up with Dr. Smith in 1-2 weeks PCP in 1-2 weeks Scheduled Cephalexin (Keflex Capsule), 1 CAP PO QID Scheduled PRN Ibuprofen (Ibuprofen), 800 MG PO Q8HP PRN 36 Discharge Statement: "Patient was advised to return to the ER or call 911 if any headaches, dizziness, shortness of breath, chest pain, abdominal pain, bleeding, fevers, or worsening of medical condition. Patient was counseled about treatment plan, medications, possible side effects, patientverbalized understanding. All questions were answered to the best of my ability. This discharge took greater then 30 minutes in planning, reviewing documentation, counseling the patient, and discussing with other team members." ASSESSMENT ASSESSMENT Assessment Cholelithiasis with biliary colic Date of Service: May 06, 2025 Billing Provider: MART SPICER NP Common Visit Codes: [id number] DISCH DAY >30min MART SPICER NP May 06, 2025 15:04
[2025-05-06 15:43] VITALS: BP 124/68; PULSE 77; RESP 18; TEMP 36.7; O2SAT 95
== END 2025-05-06 16:22 | disposition home or self-care (01) | DRG 446 ==
LOC: ER 01:04 → OVERFLOW 03:37 → WEST WING 17:00
PROVIDERS: ADMIT Nurse Practitioner Acute Care; ATTEND Nurse Practitioner Acute Care
DX: K80.70 Calculus of gallbladder and bile duct without cholecystitis without obstruction (principal); E66.9 Obesity, unspecified; F41.9 Anxiety disorder, unspecified; Z68.35 Body mass index [BMI] 35.0-35.9, adult
CPT/HCPCS: 36415; 76705; 78226; 80053; 81001; 81025; 83690; 85025; 85610; 85730; 86850; 86900; 86901; 96365; 96366; 96367; 96375; 99291; G0378; J1885; J2405; J2470; J2543